=== PATIENT | male | born 1985 | race Caucasian/White ===

== ENCOUNTER 2020-09-27 08:47 | Emergency (ER) | payer MEDICAID, SELFPAY ==
[2020-09-27 09:11] VITALS: BP 139/62; PULSE 72; RESP 18; TEMP 36.3; O2SAT 95; BMI 29.5
[2020-09-27] MEDS: cefTRIAXone sodium 500 MG, Lidocaine HCl 1 % MPF 1 ML IM (09:26)
--- NOTE | 2020-09-27 09:46 | ED.MALEGU ---
HPI - Male Genitourinary General Chief complaint: Urogenital-Male Stated complaint: INFECTION Time Seen by Provider: 09/27/20 09:06 Source: patient and bilingual interpreter Mode of arrival: ambulatory Limitations: no limitations and language barrier History of Present Illness HPI Narrative: 34-year-old male here with dysuria and frequency x3 days. Told yesterday by that she is chlamydia positive. No testicular pain, penile discharge, fevers, chills, body aches. MD Complaint: dysuria Onset (ago): day(s) Duration: intermittent Associated symptoms: Reports denies other symptoms Related Data Home Medications Medication Instructions Recorded Confirmed bisacodyl 09/27/20 cephalexin 09/27/20 09/27/20 potassium 09/27/20 Previous Rx's Medication Instructions Recorded doxycycline monohydrate 100 mg PO BID #14 cap 09/27/20 Allergies Allergy/AdvReac Type Severity Reaction Status Date / Time No Known Allergies Allergy Verified 09/27/20 09:02 Review of Systems Review of Systems: Yes all other systems are reviewed and are negative Constitutional: Constitutional: Reports no additional constitutional complaints, Denies body ache(s), Denies chills, Denies fever(s), Denies headache(s) and Denies weakness Eyes: Eyes: Reports no additional eye complaints and Denies change in vision ENT: Reports system reviewed and no additional complaints, except as documented, Denies dizziness, Denies headache(s), Denies nasal congestion, Denies nasal discharge and Denies neck pain Cardiovascular: Cardiovascular: Reports no additional cardiovascular complaints, Denies chest pain, Denies leg edema and Denies dyspnea Respiratory: Respiratory: Reports no additional respiratory complaints, Denies cough and Denies dyspnea Gastrointestinal: Gastrointestinal: Reports no additional gastrointestinal complaints, Denies abdominal pain, Denies diarrhea, Denies nausea and Denies vomiting Genitourinary: Genitourinary: Denies hematuria, Reports dysuria, Denies penile discharge, Denies testicular pain, Reports urinary frequency and Denies urinary incontinence Musculoskeletal: Musculoskeletal: Reports no additional musculoskeletal complaints, Denies back pain, Denies arthralgias, Denies joint swelling, Denies neck pain, Denies numbness and Denies tingling Integumentary/Breasts: Skin/Breast: Reports system reviewed and no additional complaints, except as docu and Denies rash Neurologic: Reports system reviewed and no additional complaints, except as documented, Denies Abnormal speech present, Denies dizziness, Denies headache(s), Denies numbness, Denies tingling and Denies weakness PMFSH Past Medical History Attestation statement: The following information was validated with the patient. Source: old records reviewed and nursing notes reviewed Social History Social History Advance Directives: No Advance Directives Information Provided: No Physical Exam Vital Signs: Vital Signs: Last Vital Signs Temp 97.3 F 09/27/20 09:11 Pulse 72 09/27/20 09:11 Resp 18 09/27/20 09:11 BP 139/62 09/27/20 09:11 Pulse Ox 95 09/27/20 09:11 Body Mass Index 29.5 Const: General: cooperative, healthy appearing, comfortable and no acute distress Orientation/consciousness: patient oriented x3 Limitations: no limitations HENMT: Head: Yes normal to inspection Ears: hearing grossly normal bilaterally General nose exam: Normal external nose present Face and sinus: Yes normal facial exam Mouth: Normal oral and palatal mucosa present Throat: Yes posterior oropharynx normal Eyes: General: appearance normal, both eyes and all related structures Pupils: Equal, round and reactive pupils present Neck: Neck: Yes normal visual inspection Chest: Chest palpation & inspection: normal inspection of the chest Resp: Effort & Inspection: normal respiratory effort Auscultation: clear to auscultation bilaterally Cardio: Rate: regular rate Rhythm: regular rhythm Peripheral pulses: Peripheral pulses 2+ throughout GI: Inspection: Yes normal to inspection Palpation (GI): Soft to palpation and nontender Auscultation: normal bowel sounds : Other: Deferred by patient Back/Spine/Pelvis: Thoracic/Lumbar Spine: thoracic and lumbar spine normal to inspection Skin: General skin exam: no rashes or lesions noted Neuro: General: patient oriented x3, no focal motor deficits and normal sensation to monofilament Cranial nerves: Yes Equal, round and reactive pupils present Cognition (Neuro): normal cognition Speech: No Abnormal speech present Gait exam (Neuro): Normal gait present Motor exam (neuro): 5/5 motor strength present throughout Extrem: General: Yes normal to inspection Course Course Course Narrative: Dysuria and frequency x3 days. at home is chlamydia positive. GC testing sent. Patient treated with ceftriaxone 500 mg IM and given a 7 day course of doxycycline. Reviewed safe sex practices. Reviewed worrisome signs and symptoms and when to return to the emergency department. Comfortable discharge home. Discharge Plan Discharge Clinical Impression: Exposure to STD Patient Disposition: Home, Self-Care Instructions: Sexually Transmitted Diseases (ED) Additional Instructions: No sex for 7 days Complete all your antibiotics If positive re-test in 7 days at [facility] Prescriptions: New doxycycline monohydrate 100 mg capsule 100 mg PO BID Qty: 14 RF: 0 No Action bisacodyl RF: 0 cephalexin RF: 0 potassium RF: 0 Referrals: Jocelyne Valle MD [Primary Care Provider] - 2 days Interventions: ED Discharge Assessment Last Done: 09/27/20 09:34 Discharge Date/Time: 09/27/20 09:34
[2020-09-29 01:22] LABS: C. trachomatis RNA TMA NOT DETECTED (NOT DETECTED); N. gonorrhoeae RNA TMA NOT DETECTED (NOT DETECTED)
== END 2020-09-27 09:34 | disposition home or self-care (01) ==
PROVIDERS: Emergency Provider Emergency Medicine; PCP Internal Medicine
DX: Z11.3 Encounter for screening for infections with a predominantly sexual mode of transmission (principal)
CPT/HCPCS: 36415; 87491; 87591; 96372; 99283; 99285; J0696

== ENCOUNTER 2021-12-06 08:37 | Outpatient (REF) | payer MEDICAID, SELFPAY ==
--- NOTE | 2021-12-06 08:40 | EEG_ITS ---
The waking background activity consists of a moderate voltage 8 to 9 Hz posterior alpha frequency, intermixed with low voltage fast frequencies anteriorly. Several episodes of sharp theta surging are seen from the right frontal region with phase reversal at F4, which could possibly be a breach rhythm, but there was no notation made whether there is a skull defect. Photic stimulation is without activation. IMPRESSION: This EEG is considered abnormal due to right frontal sharp surging theta, which could be consistent with an underlying seizure focus. Question whether there is a right frontal skull defect. Clinical correlation is suggested. MD ZAKI Mares/SHUN / [id number]
== END 2021-12-06 08:38 | disposition home or self-care (01) ==
LOC: HO.NEURO 08:37
PROVIDERS: PCP Internal Medicine; Visit Provider Internal Medicine
DX: R56.1 Post traumatic seizures (principal)
CPT/HCPCS: 95816

== ENCOUNTER 2021-12-07 15:23 | Outpatient (REF) | payer MEDICAID, SELFPAY ==
--- NOTE | ~2021-12-07 | CT_ITS ---
EXAMINATION: CT HEAD WITHOUT CONTRAST CLINICAL INFORMATION: Posttraumatic seizures. COMPARISON: None TECHNIQUE: Contiguous axial imaging was performed from the skull base to vertex without intravenous administration of contrast. This CT examination was performed using dose optimization techniques as appropriate, variously including the following: *Automated exposure control *Adjustment of mA and/or kV according to patient size (this includes techniques or standardized protocols for targeted exams where dose is matched to indication/reason for exam; i.e. extremities or head) *Use of iterative reconstruction technique DLP: 841 mGy-cm FINDINGS: There is no evidence of acute intracranial hemorrhage or territorial infarction. No abnormal mass effect or midline shift is seen. Sanders to white matter differentiation is well preserved. No extra-axial fluid collections are identified. Chronic right-sided postcraniotomy changes noted. The ventricles are normal in size. There is no abnormal attenuation within the brain parenchyma. The osseous structures and soft tissues are normal. The mastoid air cells are well aerated. There is significant mucosal thickening and fluid in the left maxillary antrum. Severe leftward nasal septal deviation and nasal septal spurring evident. CT/CT head/brain wo con IMPRESSION: No acute intracranial pathology. Chronic right-sided post craniotomy changes. Significant left maxillary sinus mucosal thickening and dependent fluid; correlate for any symptoms of acute sinusitis.
== END 2021-12-07 15:24 | disposition home or self-care (01) ==
LOC: HO.CT 15:23
PROVIDERS: PCP Internal Medicine; Visit Provider Internal Medicine
DX: R56.1 Post traumatic seizures (principal)
CPT/HCPCS: 70450